=== PATIENT | female | born 1990 | race Caucasian/White ===

== ENCOUNTER 2017-05-19 15:05 | Emergency (ER) | payer OTHER ==
[~2017-05-19] VITALS: Ht 157.5 cm; Wt 78.6 kg
[2017-05-19 15:20] VITALS: Ht 157.5 cm; Wt 78.6 kg
[2017-05-19 17:59] LABS: UA SPECIFIC GRAVITY >=1.030 (1.005-1.035); microscopic required? YES; urine erythrocyte NEGATIVE (NEGATIVE)
[2017-05-19 19:21] LABS: BASOPHIL % 0.3 % (0-2); PLATELET COUNT 254 x10^3mcL (130-400); RED CELL DISTRIBUTION WIDTH 13.7 % (11.5-14.5)
[2017-05-19 19:30] LABS: CALCIUM 8.3 mg/dL (8.5-10.1); CHLORIDE SERUM 103 mmol/L (98-107); CREATININE SERUM 0.5 mg/dL (0.6-1.0); GFR1 > 60 mL/min; GLUCOSE SERUM 86 mg/dL (74-106); POTASSIUM SERUM 3.6 mmol/L (3.5-5.1); SODIUM SERUM 138 mmol/L (136-145)
[2017-05-19 19:34] LABS: ALKALINE PHOSPHATASE 54 U/L (46-116); ALT/SGPT 50 U/L (14-59); AST/SGOT 21 U/L (15-37); BILIRUBIN TOTAL 0.2 mg/dL (0.20-1.00); TOTAL PROTEIN, SERUM 6.7 g/dL (6.4-8.2)
[2017-05-19 19:37] LABS: ALBUMIN 3.1 g/dL (3.4-5.0)
[2017-05-19 20:16] VITALS: BP 120/81
== END 2017-05-19 20:16 | disposition home or self-care (01) ==
LOC: ED 15:05
PROVIDERS: Specialist
DX: O26.891 Other specified pregnancy related conditions, first trimester (principal); R10.30 Lower abdominal pain, unspecified; R11.2 Nausea with vomiting, unspecified; F17.210 Nicotine dependence, cigarettes, uncomplicated; J44.9 Chronic obstructive pulmonary disease, unspecified; Z3A.09 9 weeks gestation of pregnancy
CPT/HCPCS: 36415

== ENCOUNTER 2017-10-31 14:17 | Emergency (ER) | payer OTHER ==
[~2017-10-31] VITALS: Ht 162.6 cm; Wt 97.1 kg
[2017-10-31 14:31] VITALS: BP 125/70; Ht 162.6 cm; Wt 97.1 kg
== END 2017-10-31 16:30 | disposition home or self-care (01) ==
LOC: ED 14:17
DX: O23.43 Unspecified infection of urinary tract in pregnancy, third trimester (principal); B96.89 Other specified bacterial agents as the cause of diseases classified elsewhere; Z3A.31 31 weeks gestation of pregnancy; J44.9 Chronic obstructive pulmonary disease, unspecified
CPT/HCPCS: J0696

== ENCOUNTER 2017-11-20 20:06 | Emergency (ER) | payer OTHER ==
[~2017-11-20] VITALS: Ht 160 cm; Wt 98.9 kg
[2017-11-20 20:11] VITALS: Ht 160 cm; Wt 98.9 kg
[2017-11-20 20:48] VITALS: BP 133/70
== END 2017-11-20 20:48 | disposition home or self-care (01) ==
LOC: ED 20:06
DX: O98.812 Other maternal infectious and parasitic diseases complicating pregnancy, second trimester (principal); O23.42 Unspecified infection of urinary tract in pregnancy, second trimester; J45.909 Unspecified asthma, uncomplicated; Z3A.32 32 weeks gestation of pregnancy

== ENCOUNTER 2018-10-03 21:10 | Emergency (ER) | payer OTHER ==
[~2018-10-03] VITALS: Ht 154.9 cm; Wt 90.3 kg
[2018-10-03 21:36] VITALS: Ht 154.9 cm; Wt 90.3 kg
[2018-10-03 23:38] LABS: BASOPHIL % 0.3 % (0-2)
[2018-10-03 23:46] LABS: CALCIUM 9.3 mg/dL (8.5-10.1); CARBON DIOXIDE 24.9 mmol/L (21-32); CHLORIDE SERUM 108 mmol/L (98-107); CREATININE SERUM 0.6 mg/dL (0.6-1.0); GFR1 > 60 mL/min; GLUCOSE SERUM 108 mg/dL (74-106); POTASSIUM SERUM 3.8 mmol/L (3.5-5.1); SODIUM SERUM 142 mmol/L (136-145)
[2018-10-03 23:51] LABS: ALBUMIN 3.2 g/dL (3.4-5.0); ALKALINE PHOSPHATASE 72 U/L (46-116); ALT/SGPT 33 U/L (14-59); AST/SGOT 15 U/L (15-37); BILIRUBIN TOTAL 0.15 mg/dL (0.20-1.00)
[2018-10-03 23:52] LABS: PLATELET COUNT 401 x10^3mcL (130-400); RED CELL DISTRIBUTION WIDTH 18.6 % (11.5-14.5)
[2018-10-04 01:28] VITALS: BP 111/64
== END 2018-10-04 01:28 | disposition home or self-care (01) ==
LOC: ED 21:10
PROVIDERS: Emergency Medicine
DX: M25.551 Pain in right hip (principal); J45.909 Unspecified asthma, uncomplicated
CPT/HCPCS: 36415

== ENCOUNTER 2018-10-14 00:12 | Emergency (ER) | payer OTHER ==
[~2018-10-14] VITALS: Ht 167.6 cm; Wt 88.5 kg
[2018-10-14 00:15] VITALS: Ht 167.6 cm; Wt 88.5 kg
[2018-10-14 01:47] LABS: CALCIUM 8.8 mg/dL (8.5-10.1); CARBON DIOXIDE 25.8 mmol/L (21-32); CHLORIDE SERUM 108 mmol/L (98-107); CREATININE SERUM 0.6 mg/dL (0.6-1.0); GFR1 > 60 mL/min; GLUCOSE SERUM 136 mg/dL (74-106); POTASSIUM SERUM 3.6 mmol/L (3.5-5.1); SODIUM SERUM 146 mmol/L (136-145)
[2018-10-14 01:52] LABS: ALBUMIN 3.6 g/dL (3.4-5.0); ALKALINE PHOSPHATASE 71 U/L (46-116); ALT/SGPT 56 U/L (14-59); AST/SGOT 30 U/L (15-37); BILIRUBIN TOTAL 0.2 mg/dL (0.20-1.00); LIPASE 247 IU/L (73-393); TOTAL PROTEIN, SERUM 6.9 g/dL (6.4-8.2)
[2018-10-14 01:59] LABS: BASOPHIL % 0.3 % (0-2); PLATELET COUNT 374 x10^3mcL (130-400)
[2018-10-14 02:00] LABS: RED CELL DISTRIBUTION WIDTH 18.5 % (11.5-14.5)
[2018-10-14 03:38] VITALS: BP 110/56
== END 2018-10-14 03:38 | disposition home or self-care (01) ==
LOC: ED 00:12
PROVIDERS: Emergency Medicine
DX: R10.84 Generalized abdominal pain (principal); R11.0 Nausea; R19.7 Diarrhea, unspecified; J45.909 Unspecified asthma, uncomplicated; Z98.890 Other specified postprocedural states
CPT/HCPCS: J0500; J1885; J2270; J2405; J7030

== ENCOUNTER 2019-03-16 12:56 | Emergency (ER) | payer OTHER ==
[~2019-03-16] VITALS: Ht 162.6 cm; Wt 89.4 kg
[2019-03-16 13:06] VITALS: Ht 162.6 cm; Wt 89.4 kg
[2019-03-16 16:29] VITALS: BP 116/69
== END 2019-03-16 16:29 | disposition home or self-care (01) ==
LOC: ED 12:56
DX: J45.901 Unspecified asthma with (acute) exacerbation (principal); F17.210 Nicotine dependence, cigarettes, uncomplicated; Z90.49 Acquired absence of other specified parts of digestive tract
CPT/HCPCS: 99406; J7512; J7613; J7644

== ENCOUNTER 2019-12-13 18:10 | Emergency (ER) | payer OTHER ==
[~2019-12-13] VITALS: Ht 152.4 cm; Wt 92.5 kg
[2019-12-13 18:43] VITALS: Ht 152.4 cm; Wt 92.5 kg
[2019-12-13 19:54] LABS: BASOPHIL % 0.4 % (0-2); PLATELET COUNT 298 x10^3mcL (130-400); RED CELL DISTRIBUTION WIDTH 16.4 % (11.5-14.5)
[2019-12-13 21:01] LABS: UA SPECIFIC GRAVITY 1.025 (1.005-1.035); microscopic required? YES; urine erythrocyte 3+ (NEGATIVE)
[2019-12-13 22:48] VITALS: BP 115/64
== END 2019-12-13 22:48 | disposition home or self-care (01) ==
LOC: ED 18:10
PROVIDERS: Emergency Medicine
DX: O26.891 Other specified pregnancy related conditions, first trimester (principal); N93.9 Abnormal uterine and vaginal bleeding, unspecified; J45.909 Unspecified asthma, uncomplicated; F17.210 Nicotine dependence, cigarettes, uncomplicated; Z98.890 Other specified postprocedural states; Z90.49 Acquired absence of other specified parts of digestive tract; Z3A.00 Weeks of gestation of pregnancy not specified
CPT/HCPCS: J1885; Q0092

== ENCOUNTER 2020-02-07 18:08 | Emergency (ER) | payer OTHER ==
[~2020-02-07] VITALS: Ht 154.9 cm; Wt 77.6 kg
[2020-02-07 18:17] VITALS: Ht 154.9 cm; Wt 77.6 kg
[2020-02-07 19:40] VITALS: BP 121/78
== END 2020-02-07 19:40 | disposition home or self-care (01) ==
LOC: ED 18:08
DX: L03.115 Cellulitis of right lower limb (principal); J45.909 Unspecified asthma, uncomplicated
CPT/HCPCS: J0696

== ENCOUNTER 2020-07-06 21:50 | Emergency (ER) | payer OTHER ==
[~2020-07-06] VITALS: Ht 162.6 cm; Wt 86.6 kg
[2020-07-06 21:59] VITALS: Ht 162.6 cm; Wt 86.6 kg
[2020-07-06 23:20] LABS: UA SPECIFIC GRAVITY >=1.030 (1.005-1.035); microscopic required? YES; urine erythrocyte 1+ (NEGATIVE)
[2020-07-07] MEDS ORDERED: KEF500 PO (00:42)
[2020-07-07] MEDS ORDERED: MONISTAT 745 GM VG (00:42)
[2020-07-07] MEDS ORDERED: DIFLUCAN150 MG PO (00:42)
[2020-07-07 01:55] VITALS: BP 113/66
== END 2020-07-07 01:59 | disposition home or self-care (01) ==
LOC: ED 21:50
PROVIDERS: Specialist
DX: N76.0 Acute vaginitis (principal); N39.0 Urinary tract infection, site not specified; A59.9 Trichomoniasis, unspecified
CPT/HCPCS: 87491; 87591; J0696